=== PATIENT | male | born 1995 | race American Indian/Alaskan Native ===

== ENCOUNTER 2021-08-19 15:53 | Emergency (ER) | payer OTHER ==
[2021-08-19 16:39] VITALS: BP 130/71
== END 2021-08-20 01:05 | disposition left against medical advice (07) ==
LOC: ED 15:53
DX: N39.0 Urinary tract infection, site not specified (principal); Z53.21 Procedure and treatment not carried out due to patient leaving prior to being seen by health care provider

== ENCOUNTER 2021-10-26 08:44 | Emergency (ER) | payer SELFPAY ==
[2021-10-26 08:50] VITALS: BP 136/84
--- NOTE | 2021-10-26 11:29 | Emergency Department Report ---
- General Chief Complaint: Pain General Stated Complaint: COVID SYMPTOMS Source: patient Mode of arrival: Ambulatory Limitations: No Limitations - History of Present Illness Initial Comments: 26-year-old male presents to the ED complaining of headache cough fever x2 weeks but over the last 2 days has worsen. Patient states that he works in a very cold environment and then returned to the hot environment. Patient states sinus pressure pain. Patient denies taking any zogu-puh-fodhnig medication. Patient states that he was concerned with having COVID and was seeking a COVID symptom lasting so long. Patient is alert and oriented x3. No acute distress noted. No ill appearance noted MD Complaint: fever, cough, sinus pain Onset/Timin -: days(s) Severity: moderate Severity scale (0 -10): 6 Quality: aching Consistency: intermittent Improves With: nothing - Related Data Previous Rx's Medication Instructions Recorded Last Taken Type Amoxicillin/K Clav Tab [Augmentin 1 tab PO Q12HR 10 Days #20 tab 10/26/21 Unknown Rx 875 mg] Brompheniramine/Pseudoephed/Dm 5 ml PO BID #118 ml 10/26/21 Unknown Rx [Bromfed Dm Cough Syrup] Ibuprofen [Motrin] 800 mg PO Q8HR PRN 15 Days #30 10/26/21 Unknown Rx tablet predniSONE [Deltasone] 50 mg PO QDAY 5 Days #5 tab 10/26/21 Unknown Rx Allergies Allergy/AdvReac Type Severity Reaction Status Date / Time No Known Allergies Allergy Verified 08/19/21 16:41 ED Review of Systems ROS: Stated complaint: COVID SYMPTOMS Other details as noted in HPI Constitutional: denies: chills, fever Eyes: denies: eye pain, eye discharge, vision change ENT: denies: ear pain, throat pain Respiratory: cough. denies: shortness of breath, wheezing Cardiovascular: denies: chest pain, palpitations Endocrine: no symptoms reported Gastrointestinal: denies: abdominal pain, nausea, diarrhea Genitourinary: denies: urgency, dysuria Musculoskeletal: denies: back pain, joint swelling, arthralgia Skin: denies: rash, lesions Neurological: headache. denies: weakness, paresthesias Psychiatric: denies: anxiety, depression Hematological/Lymphatic: denies: easy bleeding, easy bruising ED Past Medical Hx - Past Medical History Previous Medical History?: Yes Hx Asthma: Yes - Surgical History Past Surgical History?: No - Medications Home Medications: Home Medications Medication Instructions Recorded Confirmed Last Taken Type Amoxicillin/K Clav Tab [Augmentin 1 tab PO Q12HR 10 Days #20 tab 10/26/21 Unknown Rx 875 mg] Brompheniramine/Pseudoephed/Dm 5 ml PO BID #118 ml 10/26/21 Unknown Rx [Bromfed Dm Cough Syrup] Ibuprofen [Motrin] 800 mg PO Q8HR PRN 15 Days #30 10/26/21 Unknown Rx tablet predniSONE [Deltasone] 50 mg PO QDAY 5 Days #5 tab 10/26/21 Unknown Rx ED Physical Exam - General Limitations: No Limitations General appearance: alert, in no apparent distress - Head Head exam: Present: atraumatic, normocephalic - Eye Eye exam: Present: normal appearance - ENT ENT exam: Present: mucous membranes moist - Expanded ENT Exam Expanded TM/Canal exam: Mastoid Tenderness: Right TM, Left TM (frontal ) - Neck Neck exam: Present: normal inspection - Respiratory Respiratory exam: Present: normal lung sounds bilaterally. Absent: respiratory distress - Cardiovascular Cardiovascular Exam: Present: regular rate, normal rhythm. Absent: systolic murmur, diastolic murmur, rubs, gallop - GI/Abdominal GI/Abdominal exam: Present: soft, normal bowel sounds - Rectal Rectal exam: Present: deferred - Extremities Exam Extremities exam: Present: normal inspection - Back Exam Back exam: Present: normal inspection - Neurological Exam Neurological exam: Present: alert, oriented X3 - Psychiatric Psychiatric exam: Present: normal affect, normal mood - Skin Skin exam: Present: warm, dry, intact, normal color. Absent: rash ED Course Vital Signs 10/26/21 08:49 Temperature 99.2 F Pulse Rate 99 H Respiratory 18 Rate Blood Pressure 136/84 O2 Sat by Pulse 100 Oximetry ED Medical Decision Making - Medical Decision Making 26-year-old male presents to the ED complaining of headache cough fever x2 weeks but over the last 2 days has worsen. Patient states that he works in a very cold environment and then returned to the hot environment. Patient states sinus pressure pain. Patient denies taking any [id number]-ftg-fllbrym medication. Patient states that he was concerned with having COVID and was seeking a COVID symptom lasting so long. Patient is alert and oriented x3. No acute distress noted. No ill appearance noted. Physical examination patient has tenderness upon palpation noted to the frontal cavity, postnasal drip noted. Rechecked the patient is resting quietly , comfortable and feeling better. I discussed the results of diagnostic study, my clinical impression and the plan for further treatment with the patient. Patient agrees with plan and discharge at this present time. All question addressed. I have given the patient instruction regarding a diagnosis ,expectation ,follow- up and return precaution. I explained to the patient that emergent condition may arise and to return to the ED for new worsen and any new persisting condition. I have explained the importance of following up with the primary care physician or referral physician listed below has instructed. The patient verbalized understanding of discharge instruction. Critical care attestation.: If time is entered above; I have spent that time in minutes in the direct care of this critically ill patient, excluding procedure time. ED Disposition Clinical Impression: Acute sinusitis Qualifiers: Sinusitis location: frontal Recurrence: non-recurrent Qualified Code(s): J01.10 - Acute frontal sinusitis, unspecified Disposition: HOME / SELF CARE / HOMELESS Is pt being admited?: No Does the pt Need Aspirin: No Condition: Stable Instructions: Sinusitis, Adult, [id number] Additional Instructions: Your symptoms appear most consistent with a nonspecific viral syndrome. However, given this current pandemic, COVID-19 is in the differential of possibilities. Despite your previous negative COVID-19 test, I do recommend repeat outpatient Covid 19 testing. In the meantime, isolate/quarantine yourself and stay away from anyone who is elderly, immunocompromised or chronically ill. You can use ibuprofen every 6-8 hours and Tylenol every 4-8 hours, using the dosing on the back of the bottle, as needed for any fever or body aches. Return to the emergency department with any worsening of your symptoms, development of chest pain or shortness of breath, or with any acute distress. Prescriptions: Amoxicillin/K Clav Tab [Augmentin 875 mg] 1 tab PO Q12HR 10 Days #20 tab Brompheniramine/Pseudoephed/Dm [Bromfed Dm Cough Syrup] 5 ml PO BID #118 ml predniSONE [Deltasone] 50 mg PO QDAY 5 Days #5 tab Ibuprofen [Motrin] 800 mg PO Q8HR PRN 15 Days #30 tablet PRN Reason: Pain, Mild (1-3) Forms: Work/School Release Form(ED) Time of Disposition: 11:34
[2021-10-26] MEDS ORDERED: IBUPROFEN 800 MG TAB PO ONE (11:31)
== END 2021-10-26 11:49 | disposition home or self-care (01) ==
LOC: ED 08:44
DX: J01.90 Acute sinusitis, unspecified (principal); J45.909 Unspecified asthma, uncomplicated; Z79.899 Other long term (current) drug therapy
CPT/HCPCS: 99282